=== PATIENT | male | born 1955 | race Caucasian/White ===

== ENCOUNTER 2024-12-15 15:20 | Emergency (ER) | payer OTHER, SELFPAY ==
--- OUTSIDE RECORDS SUMMARY | 2024-12-10 11:00 | XMS_ITS | Encounter Summary ---
Author Organization [facility] Address [address] [place] [address] Phone Care Team Providers Care Legal Mediator Name Role Phone Referring, No Primary Care Provider Unavailabl e Reason for Visit * Reason Comments Vomiting Sometimes after eati ng for past 3 weeks Shortness of Breath X3 weeks Encounter Details Date Type Department Care Team (Late st Contact Info) Description 12/10/2024 12:00 PM EDT Office Visit [facility] [place] [address] [place] [address] Darron Us PA [address] [place] [id number] Shortness of breath (Primary Dx); Nausea and vomiting, unspecified vomiting type Social History Tobacco Use Types Packs/Day Years Used Date Smoking Tobacco: Never Smokeless Tobacco: Never Tobacco Cessation:Counseling Given: Not Answered Alcohol Use Standard Drinks/Week Comments Never 0 (1 standard drink = 0.6 oz pur e alcohol) Sex and Gender Information Value Date Recorded Sex Assigned at Not on file Legal Sex Male 11:16 AM EDT Gender Identity Not on file Sexual Orientation Not on file documented as of this encounter Last Filed Vital Signs Vital Sign Reading Time Taken Comments Blood Pressure 186/104 12/10/2024 12:53 PM EDT Pulse - - Temperature - - Respiratory Rate - - Oxygen Saturation - - Inhaled Oxygen Concentration - - Weight - - Height - - Body Mass Index - - documented in this encounter Patient Instructions * Patient Instructions* Darron Us PA - 12/10/2024 12:00 PM EDT Images from the original note were not included. Thank you for choosing [facility] today! Diagnosis: Shortness for breath, vomiting Chest x-rays concerning for enlarged heart, your blood pressure is mildly elevated. We recommend you go to the emergency department for further evaluation and treatment but you declined and we will follow up with your primary doctor in 2-3 days. Advised that if you develop any worsening chest pain or shortness for breath or vomiting to go immediately to the emergency department. Patient Education Shortness of Breath (Dyspnea) Discharge Instructions About this topic Trouble breathing is known as dyspnea. It is also known as shortness of breath or SOB. You may feellike you do not get enough air when you breathe. Many things can make you feel short of breath. Lung problems, like asthma or chronic obstructive pulmonary disease (COPD) or a blood clot in your lungs, can cause shortness of breath. So can a heart attack or heart failure when your heart doesn???t work as well as it should. A serious allergic reaction can also cause very bad breathing problems. Treatment depends on the specific cause of trouble breathing. What care is needed at home? Ask your doctor what you need to do when you go home. Make sure you ask questions if you do not understand what the doctor says. This way you will know what you need to do. Keep a diary of your signs. Write down when you have trouble breathing and what you were doing before it happened. This can help figure out what things affect your breathing. Then, you may be able toavoid them. Do not smoke or be in smoke-filled places. Avoid things that may cause breathing problems like fumes, pollution, dust, and other common allergens. Do coughing and deep breathing exercises to help keep your lungs clear. If you have medicines to take when you are feeling short of breath, be sure to carry them with you.Then, you can take them when needed. What follow-up care is needed? Your doctor may ask you to make visits to the office to check on your progress. Be sure to keep these visits. Your doctor may order more tests if trouble breathing comes back. The results will help your doctorunderstand what health problem caused your SOB. Together you can make a plan for more care. What drugs may be needed? The doctor may order drugs to: Open the lung passages Relax the airways Help with swelling Control coughing Help you relax Fight an infection Prevent blood clots Take all your drugs as directed by your doctor. Do not stop taking your drugs without talking to your doctor first. Do not share or take other drugs. Get refills before you run out. Will physical activity be limited? Ask your doctor about exercise. Some exercises may not be safe for you. Talk to your doctor about the right amount of activity for you. Stay away from activities that make it hard to breathe. Get enough rest until breathing returns to normal. What problems could happen? Breathing problems get worse Heart failure Lung failure What can be done to prevent this health problem? Avoid tight clothing. Practice good body posture. Rest when you feel out of breath. Take drugs before activity if ordered. When do I need to call the doctor? Activate the emergency medical system right away if you have signs of a heart attack. Call 911 in the [place] or [place]. The sooner treatment begins, the better your chances for recovery. Call for emergency help right away if you have: You have signs of a heart attack, which may include: Breathing trouble; sweating; upset stomach; or cold, clammy skin. Pain in your arms, back, or jaw. Worse pain with activity like walking up stairs. You are having so much trouble breathing that you can only say one or two words at a time. You need to sit upright at all times to be able to breathe or cannot lie down. You develop swelling of your tongue, lips, or throat. You feel your shortness of breath is slowly getting worse. You are feeling weak more than usual when doing activities. Call your regular doctor if: You have a fever of 100.4??F (38??C) or higher, are coughing up mucus, have leg swelling, or hives. You have gain more than 2 to 3 pounds (1 to 1.5 kg) overnight or 3 to 5 pounds (1.5 to 2.5 kg) in aweek. Teach Back: Helping You Understand The Teach Back Method helps you understand the information we are giving you. After you talk with the staff, tell them in your own words what you learned. This helps to make sure the staff has described each thing clearly. It also helps to explain things that may have been confusing. Before going home, make sure you can do these: I can tell you about my condition. I can tell you what may help ease my breathing. I can tell you what I can do to help avoid passing the infection to others. I can tell you what I will do if I have trouble breathing, chest pain, weight gain, or swelling. Where can I learn more? FamilyDoctor.org http://familydoctor.org/familydoctor/en/diseases-conditions/bqxyjsusc-mg-bkvjvv. html NHS Choices https://www.nhs.uk/conditions/xidqofonn-xo-opmllb/ Last Reviewed Date 2021-03-23 Consumer Information Use and Disclaimer This generalized information is a limited summary of diagnosis, treatment, and/or medication information. It is not meant to be comprehensive and should be used as a tool to help the user understand and/or assess potential diagnostic and treatment options. It does NOT include all information about conditions, treatments, medications, side effects, or risks that may apply to a specific patient. Itis not intended to be medical advice or a substitute for the medical advice, diagnosis, or treatment of a health care provider based on the health care provider's examination and assessment of a patient???s specific and unique circumstances. Patients must speak with a health care provider for complete information about their health, medical questions, and treatment options, including any risks orbenefits regarding use of medications. This information does not endorse any treatments or medications as safe, effective, or approved for treating a specific patient. [employer] and its affiliates disclaim any warranty or liability relating to this information or the use thereof. The use of this information is governed by the Terms of Use, available at https://www.[employer].com/en/know/nrxsssmj-jkubtxeoqgenv-arwqw Copyright Copyright ?? 2022 [employer]. and its affiliates and/or licensors. All rights reserved. -Your vital signs were reviewed. -We have discussed your assessment and plan and all questions have been answered. -Discharge information provided. Please review all provided printouts. -Urgent Care is not a substitute for ongoing care with a primary care provider. Please follow up with your primary care provider for continuing symptoms. If you do not have a primary doctor please contact that connection center at -If you experience worsening or severe symptoms go to the nearest emergency department immediately for evaluation. documented in this encounter Progress Notes * Darron Us PA - 12/10/2024 12:00 PM EDT Subjective: Reason for Visit: Vomiting (Sometimes after eating for past 3 weeks) and Shortness of Breath (X3 weeks) History provided by: self Shortness of Breath 69-year-old male with hypertension presents with intermittent vomiting and shortness for breath anddrive throat for 3 weeks. He notes that occasionally he will vomit after eating. He denies any fever, chest pain, palpitations, dizziness, abdominal pain. Notes that he saw his primary care doctor a few days ago with a negative workup. He had blood work done yesterday but was not sure what it was. History: Allergies[1] Past Medical History[2] Past Surgical History[3] Current Outpatient Medications: amLODIPine, Objective: BP (!) 186/104 (Site: l a, Position: Sitting, Cuff Size: Medium) Pulse (!) (P) 97 Temp (P) 98 ??F (36.7 ??C) (Oral) Resp (P) 14 Ht (P) 5' 9 (1.753 m) Wt (P) 70.8 kg SpO2 (P) 96% BMI (P) 23.04 kg/m?? No results found. Physical Exam Vitals reviewed. Constitutional: Appearance: Normal appearance. Comments: Mildly anxious HENT: Head: Normocephalic and atraumatic. Nose: Nose normal. Mouth/Throat: Mouth: Mucous membranes are moist. Eyes: Conjunctiva/sclera: Conjunctivae normal. Cardiovascular: Rate and Rhythm: Normal rate and regular rhythm. Pulmonary: Effort: Pulmonary effort is normal. No respiratory distress. Breath sounds: No wheezing or rhonchi. Abdominal: General: Abdomen is flat. There is no distension. Palpations: There is no mass. Tenderness: There is no abdominal tenderness. There is no right CVA tenderness, left CVA tenderness, guarding or rebound. Musculoskeletal: General: Normal range of motion. Cervical back: Neck supple. Skin: General: Skin is warm and dry. Neurological: General: No focal deficit present. Mental Status: He is alert and oriented to person, place, and time. Cranial Nerves: No cranial nerve deficit. Sensory: No sensory deficit. Motor: No weakness. Gait: Gait normal. Psychiatric: Mood and Affect: Mood normal. No results found for this visit on 12/10/24. XR Chest PA and Lateral Final Result Lungs: No consolidation or infiltrate. Trace right and small left pleural effusion. Mild left basilar atelectasis. Mild pulmonary vascular congestion. No pneumothorax. Cardiomediastinum: Moderate cardiomegaly. Otherwise, mediastinum is normal in size. Bones: No gross acute abnormality. Soft tissues: Unremarkable. /Marked Tree Orders Placed This Encounter Procedures XR Chest PA and Lateral Procedures Assessment & Plan: Encounter Diagnoses Code Name Primary? R06.02 Shortness of breath Yes R11.2 Nausea and vomiting, unspecified vomiting type Requested Prescriptions No prescriptions requested or ordered in this encounter Medical Decision Making: Patient is afebrile nontoxic. Blood pressure is mildly elevated. Patient has normal oxygen saturation on room air. He is afebrile. Patient is mildly anxious appearing. Reviewed preliminary x-ray report with patient advised that it is concerning for heart failure. He declines going to the emergency department at this time and we will follow up with his primary care. Advised that we will contact him with the final read. Patient understands the risk of delaying emergency department care. 13:38 spoke with patient regarding x-ray results. Chest x-ray showed mild cardiomegaly with pleuraleffusions and vascular congestion. No history of heart failure. Advised the patient to go to the emergency department for further evaluation and treatment to rule out heart failure, PE, pneumonia. Patient agrees to go to the emergency department for further evaluation. Differential diagnosis: Congestive heart failure, PE, pleural effusion, pneumonia Dispo: Home Electronically Signed by SHANTA Fuller, December 10, 2024 [1] No Known Allergies [2] Past Medical History: Diagnosis Date Hypertension [3] Past Surgical History: Procedure Laterality Date NO PAST SURGERIES documented in this encounter Plan of Treatment Not on file documented as of this encounter Procedures Procedure Name Priority Date/Time Associated Diagnosis Comments XR CHEST PA AND LATERAL Within 2 hours (STAT) 12/10/2024 12:21 PM EDT Shortness of breath documented in this encounter Results * XR Chest PA and Lateral (12/10/2024 12:21 PM EDT) Anatomical Region Laterality Modality Chest Digital Radiogra phy 12/10/2024 12:5 8 PM EDT Impressions 12/10/2024 12:58 PM EDT Lungs: No consolidation or infiltrate. Trace right and small left pleural effusion. Mild left basilar atelectasis. Mild pulmonary vascular congestion. No pneumothorax. Cardiomediastinum: Moderate cardiomegaly. Otherwise, mediastinum is normal in size. Bones: No gross acute abnormality. Soft tissues: Unremarkable. /[place] Narrative 12/10/2024 12:58 PM EDT Examination X-ray(s) of the Chest Comparison None provided. Findings: As below Procedure Note Galdino Shaw, DO - 12/10/2024 Examination X-ray(s) of the Chest Comparison None provided. Findings: As below IMPRESSION: Lungs: No consolidation or infiltrate. Trace right and small left pleuraleffusion. Mild left basilar atelectasis. Mild pulmonary vascularcongestion. No pneumothorax. Cardiomediastinum: Moderate cardiomegaly. Otherwise, mediastinum is normalin size. Bones: No gross acute abnormality. Soft tissues: Unremarkable. /[place]astern Darron WOMACK IMG DIAGNOSTIC IMAGING ORDERABL ES Final Result documented in this encounter Visit Diagnoses Diagnosis Shortness of breath- Primary Nausea and vomiting, unspecified vomiting type documented in this encounter Care Teams Legal Mediator Relationship Specialty Start Date End Date Referring, No PCP - General 12/10/24 documented as of this encounter
--- NOTE | ~2024-12-15 | XR_ITS ---
CLINICAL HISTORY: shortness of breath 2 view chest x-ray Comparison: None provided Findings: Small left pleural effusion. Mildly prominent perihilar vasculature. Mild cardiomegaly. No acute osseous abnormality. IMPRESSION: 1. Mild cardiomegaly with pulmonary vascular congestion and small left pleural effusion. This document has been electronically signed by: Mindy Chen MD on 12/15/2024 18:21:30
--- NOTE | 2024-12-15 15:24 | ECG_ITS ---
Test Reason : AFIB Blood Pressure : */* mmHG Vent. Rate : 81 BPM Atrial Rate : * BPM P-R Int : * ms QRS Dur : 104 ms QT Int : 410 ms P-R-T Axes : * 76 252 degrees QTcB Int : 476 ms Atrial fibrillation with premature ventricular or aberrantly conducted complexes Moderate voltage criteria for LVH, may be normal variant ( Sokolow-Zamora , [place]ackney product ) ST & T wave abnormality, consider inferolateral ischemia Prolonged QT Abnormal ECG No previous ECGs available Referred By: Gerald Kauffman Electronically Signed By: Ricky Cunningham
[2024-12-15 15:36] VITALS: BP 151/88; PULSE 94; RESP 18; TEMP 36.6; O2SAT 95; BMI 23.9
--- NOTE | 2024-12-15 15:44 | ED_ITS ---
HPI - General Adult General Chief complaint: Arrhythmia/Palpitations Stated complaint: sent by Dr Merino cardiac? Time Seen by Provider: 12/15/24 16:23 Source: patient, RN notes reviewed and old records reviewed Mode of arrival: ambulatory Limitations: no limitations History of Present Illness ED Provider: Frantz CRUZ narrative: 69-year-old male with past medical history significant for hypertension presents for evaluation of shortness of breath and dyspnea on exertion. The patient reports that his symptoms were 2 weeks ago. He saw his primary doctor 2 weeks ago for a sick visit and was found to be in AFib. This was new for the patient and he was started on metoprolol. Unfortunately that medication was sent to a [facility]imalleolar pharmacy and the patient was only able to start the medication 3 days ago. He is not anticoagulated. He reports that he had a follow up with his primary doctor today which was a routine visit. The patient was referred to the ED for further evaluation. In his somewhat unclear why he was sent here today the patient reports he is currently asymptomatic, denies any chest pain, shortness of breath. He does admit that with significant exertion, walking up 3 flights of stairs he does have some mild shortness of breath. Denies any leg swelling He has no other complaints or concerns at this time Related Data Previous Rx's ?Medication ?Instructions ?Recorded apixaban 5 mg (74 tabs) tablets in 5 mg PO BID #74 ea 12/15/24 a dose pack (Eliquis DVT-PE Treat 30D Start) furosemide 20 mg tablet (Lasix) 20 mg PO DAILY #5 tabs 12/15/24 Allergies Allergy/AdvReac Type Severity Reaction Status Date / Time No Known Allergies Allergy Verified 12/15/24 15:40 Review of Systems 2 Constitutional: Constitutional: Denies body ache(s), Denies chills, Denies fever(s) and Denies headache(s) Eyes: Eyes: Denies blurry vision ENT: Denies dizziness, Denies dry mouth and Denies headache(s) Cardiovascular: Cardiovascular: Denies chest pain, Denies dyspnea and Reports dyspnea on exertion Respiratory: Respiratory: Denies cough, Denies dyspnea and Reports dyspnea on exertion Gastrointestinal: Gastrointestinal: Denies abdominal pain, Denies nausea and Denies vomiting Musculoskeletal: Musculoskeletal: Denies back pain Integumentary/Breasts: Skin/Breast: Denies rash Neurologic: Denies dizziness and Denies headache(s) Psychiatric: Psychiatric: Denies anxiety Physical Exam ED Vital Signs: Vital Signs - 24 hr 12/15/24 15:36 12/15/24 16:29 12/15/24 19:34 Temperature 98 F 98.2 F Pulse Rate 94 99 85 Respiratory Rate 18 17 18 Blood Pressure 151/88 H 00/00 L Pulse Oximetry 95 98 96 Oxygen Delivery Method Room Air Room Air Room Air BMI result Body Mass Index 23.9 Const General: healthy appearing, comfortable, no acute distress, alert and awake Nutritional Appearance: well nourished Orientation/consciousness: patient oriented x3 HENMT Head: Yes normocephalic and Yes atraumatic Eyes Eyelids: Yes eyelids normal Conjunctivae: conjunctivae normal Sclerae: sclerae normal Corneas: corneas normal Pupils: Equal, round and reactive pupils present EOM: EOMs intact bilaterally Neck Neck: Yes full ROM Resp Effort & Inspection: normal respiratory effort, able to speak in complete sentences, no audible wheezes and not labored Auscultation: clear to auscultation bilaterally Cardio Rate: abnormal rate Rhythm: abnormal rhythm irregularly irregular GI Inspection: No distended Palpation (GI): Soft to palpation, not firm, nontender, no guarding and not rigid Skin General skin exam: no rashes or lesions noted and elasticity normal Neuro General: patient oriented x3 Cranial nerves: Yes CN's II-XII intact bilaterally, Yes Equal, round and reactive pupils present and Yes Bilaterally intact EOM present Cognition (Neuro): normal cognition Extrem Other: Moving all extremities well without any obvious deformities Course Course Course Narrative: RME: 69-year-old male since from primary care provider for AFib. Patient states shortness of breath on exertion for 2 weeks. Labs EKG ordered. EKG shows AFib rate controlled 81. Medications Administered Discontinued Medications Generic Name Dose Route Start Last Admin Trade Name Freq PRN Reason Stop Dose Admin Apixaban 5 mg 12/15/24 18:55 12/15/24 19:18 Apixaban 5 Mg Tablet PO 12/15/24 18:56 5 mg ONCE ONE Administration Medical Decision Making Medical Decision Making MDM Narrative: 69-year-old male with a past medical history as above presents for evaluation of atrial fibrillation. The patient is asymptomatic currently. I am not entirely sure why he was sent to the ED as she was diagnosed with a AFib 2 weeks ago. He was prescribed metoprolol in his currently rate controlled at 80 beats per minute. His EKG does show atrial fibrillation with some PVCs. We have no previous for comparison. The patient is mildly hypertensive at 158/88. Otherwise his vital signs are within normal limits. He did have labs performed that show no leukocytosis, no significant anemia. No left shift. He has a mild hypokalemia of 3.2, a carbon dioxide level of 31 which may be due to undiagnosed obstructive sleep apnea. He has a slightly elevated total bilirubin to 1.6 but denies any abdominal pain, nausea vomiting. The patient's troponin is 19.3. Again his symptoms have been present for 2 weeks he currently has no chest pain, he rules out for ACS. His pro BNP is elevated to 3198. I did order a chest x- ray due to this which shows small pleural effusion on the left. The pain has a staying in the hospital. Given that his vital signs are stable and he is rate controlled I feel is appropriate that he can follow up with outpatient Cardiology. I did give him strict return precautions including worsening chest pain, worsening shortness of breath or palpitations. We will start him on Eliquis. I discussed risks and benefits of bleeding, head injuries. Differential Diagnosis Differential Diagnoses: The differential diagnosis associated with the presentation includes Atrial fibrillation Congestive heart failure Dyspnea on exertion Cardiomyopathy Arrhythmia Bronchitis less likely Admission/Observation Consideration of admission/observation: Escalation of care including admission/observation considered Consider admission for stress and a cardiogram due to history of atrial fibrillation with the patient adamantly declines admission. Lab Data MDM Lab Attestation statement: I reviewed the patient's lab results. As above, mild hypokalemia. 12/15/24 16:44 12/15/24 16:44 Labs: Lab Results 12/15/24 Range/Units 16:44 WBC 9.3 (4.8-10.8) X10*3/uL RBC 5.16 (4.60-5.80) X10*6/uL Hgb 15.4 (14.0-18.0) g/dl Hct 46.4 (42.0-52.0) % MCV 89.9 (80.0-98.0) fL MCH 29.8 (27.0-33.0) pg MCHC 33.2 (31.0-36.0) g/dl RDW 15.3 (11.0-16.0) % Plt Count 226 (160-400) X10*3/uL MPV 10.4 (9.4-12.4) fL Immature Gran % (Auto) 0.2 (0.0-0.4) % Neut % (Auto) 72.5 (45-73) % Lymph % (Auto) 16.2 L (20-40) % Coles % (Auto) 9.6 (2-11) % Eos % (Auto) 1.1 (0-4) % Baso % (Auto) 0.4 (0-2) % Lymph # (Auto) 1.5 (1.2-4.9) X10*3/uL Coles # (Auto) 0.9 (0.1-1.2) X10*3/uL Eos # (Auto) 0.1 (0.0-0.4) X10*3/uL Baso # (Auto) 0.0 (0.0-0.2) X10*3/uL Abs Immat Gran (auto) 0.02 (0.00-0.03) X10*3/uL Absolute Neuts (auto) 6.7 (2.0-8.3) x10*3/uL Absolute Nucleated RBC 0.000 (0.0-0.012) X10*3/uL Nucleated RBC % (auto) 0.0 (0.0-0.2) /100WBC PT 12.9 (11.2-13.5) SEC INR 1.1 (0.9-1.1) APTT 28.7 (26.7-34.1) SEC Sodium 143 (135-145) mmol/L Potassium 3.2 L (3.3-5.1) mmol/L Chloride 105 (96-108) mmol/L Carbon Dioxide 31 H (22-29) mmol/L Anion Gap 10 L (12-20) BUN 19 H (9-16) mg/dL Creatinine 0.80 (0.5-1.4) mg/dL Estim Creat Clear Calc 87.1 Estimated GFR > 60 Random Glucose 108 (60-115) mg/dL Calcium 9.2 (8.4-10.2) mg/dL Total Bilirubin 1.6 H (0.0-1.0) mg/dL AST 40 H (5-37) U/L ALT 71 H (0-40) U/L Alkaline Phosphatase 87 (39-117) U/L Troponin I High Sens 19.3 (<3.5-35.0) ng/L NT-Pro-B Natriuret Pep 3898.0 H (<300) pg/mL Total Protein 6.7 (6.5-8.0) g/dL Albumin 4.2 (3.5-5.0) g/dL TSH 1.41 (0.32-4.0) uIU/mL Discharge Plan Discharge Clinical Impression: Atrial fibrillation, Congestive heart failure Patient Disposition: Home, Self-Care Instructions: Heart Failure (ED), A-fib (Atrial Fibrillation) (ED), Blood Thinners (ED) Additional Instructions: Your blood work today was reassuring. It does appear that you have mild congestive heart failure. Your chest x-ray shows a small amount of fluid in the lungs. I recommend taking Eliquis as prescribed to reduce risk of stroke pain You should take Lasix daily for the next 5 days to help with congestive heart failure Follow up with Cardiology and provided. Return for new or worsening symptoms, especially chest pain, shortness of breath or palpitations Prescriptions: New Eliquis DVT-PE Treat 30D Start 5 mg (74 tabs) tablets,dose pack 5 mg PO BID Qty: 74 0RF furosemide [Lasix] 20 mg tablet 20 mg PO DAILY Qty: 5 0RF Referrals: [facility] [place] [facility] [Provider Group] Referral Note: ashley armendariz fib, CHF Interventions: ED Discharge Assessment Last Done: 12/15/24 19:34 Discharge Date/Time: 12/15/24 19:57 Print Language: Maltese
[2024-12-15 16:29] VITALS: PULSE 99; RESP 17; O2SAT 98
[2024-12-15 16:48] LABS: MANUAL DIFF FLAG NO
[2024-12-15 16:49] LABS: Hematocrit 46.4 % (42.0-52.0); Hemoglobin 15.4 g/dl (14.0-18.0); Imm Gran Abs Auto 0.02 X10*3/uL (0.00-0.03); Imm Gran Pct Auto 0.2 % (0.0-0.4); Lymphocytes Absolute Auto 1.5 X10*3/uL (1.2-4.9); Mean Corpuscular HGB Conc 33.2 g/dl (31.0-36.0); Mean Corpuscular Hemoglobin 29.8 pg (27.0-33.0); Mean Corpuscular Volume 89.9 fL (80.0-98.0); NRBC Abs Auto 0.000 X10*3/uL (0.0-0.012); NRBC Pct Auto 0.0 /100WBC (0.0-0.2); Platelet Count 226 X10*3/uL (160-400); Red Blood Count 5.16 X10*6/uL (4.60-5.80); White Blood Count 9.3 X10*3/uL (4.8-10.8)
[2024-12-15 17:02] LABS: INTERNATIONAL NORM RATIO 1.1 (0.9-1.1); Prothrombin Time 12.9 SEC (11.2-13.5)
[2024-12-15 17:05] LABS: Partial Thromboplastin Time 28.7 SEC (26.7-34.1)
[2024-12-15 17:14] LABS: Alanine Aminotransferase 71 U/L (0-40); Albumin Level 4.2 g/dL (3.5-5.0); Alkaline Phosphatase 87 U/L (39-117); Anion Gap 10 (12-20); Aspartate Amino Transferase 40 U/L (5-37); Blood Urea Nitrogen 19 mg/dL (9-16); Calcium 9.2 mg/dL (8.4-10.2); Carbon Dioxide 31 mmol/L (22-29); Chloride 105 mmol/L (96-108); Creatinine Clr Calc Pharmacy 87.1; Estimated Glomerular Filt Rate > 60; NT Pro B Type Natriuretic Pept 3898.0 pg/mL (<300); Potassium 3.2 mmol/L (3.3-5.1); Sodium 143 mmol/L (135-145); Total Protein 6.7 g/dL (6.5-8.0); Troponin-I High Sensitivity 19.3 ng/L (<3.5-35.0)
--- OUTSIDE RECORDS SUMMARY | 2024-12-15 19:07 | XMS_ITS | Clinical Summary ---
Author Organization [address] [facility] Address [address] [place] [address] Care Team Providers Care Refrigeration Lead Name Role Phone Referring, No Primary Care Provider Unavailabl e Allergies No known active allergies Medications amLODIPine (NORVASC) 10 mg tablet 11/02/2024 Active Active Problems No known active problems Encounters Date Type Department Care Team Description 12/10/2024 12:00 PM EDT Office Visit [facility] [address] Darron Us, SHANTA Shortness of breath (Primary Dx); Nausea and vomiting, unspecified vomiting type from Last 3 Months Family History Medical History Relation Name Comments No Known Problems Father No Known Problems Mother Relation Name Status Comments Father Mother Social History Tobacco Use Types Packs/Day Years [...] on file Sexual Orientation Not on file Last Filed Vital Signs Vital Sign Reading Time Taken Comments Blood Pressure 186/104 12/10/2024 12:53 PM EDT Pulse - - Temperature - - Respiratory Rate - - Oxygen Saturation - - Inhaled Oxygen Concentration - - Weight - - Height - - Body Mass Index - - Plan of Treatment Health Maintenance Due Date Last Done Comments HIV screening 08/16/1968 Hepatitis C screening 08/16/1973 Tetanus adult (Td q 10,TDAP once) 1975 Lipid disorder screening 1995 Colon cancer screening, Colonoscopy 08/16/2000 Diabetes screening 08/16/2000 Pneumococcal Vaccine (50+ ye ars) (1 of 1 - PCV) 08/16/2005 Shingles vaccine (Shingrix) (1 of 2 - Shingrix (RZV) 2 Dose Standard Series) 08/16/2005 Influenza vaccine 09/10/2024 Covid-19 vaccine series (1 - season) 2024 RSV Immunization (1 - 1-dose 75+ series) 08/16/2030 Meningococcal B Vaccine Aged Out No l onger eligible based on patient's age to complete this topic Meningococcal Vaccine Aged Out No aracely criselda eligible based on patient's age to complete this topic Procedures Procedure Name Priority Date/Time Associated Diagnosis Comments XR CHEST PA AND LATERAL Within 2 hours (STAT) 12/10/2024 12:21 PM EDT Shortness of breath from Last 3 Months Results * XR Chest PA and Lateral [...] No gross acute abnormality. Soft tissues: Unremarkable. [place] Darron [facility]G DIAGNOSTIC IMAGING ORDERABL ES Final Result from Last 3 Months Insurance MEDICARE Incont MEDICARE Incont MEDICARE [facility] Care Teams Refrigeration Lead Relationship Specialty Start Date End Date Referring, No PCP - General 12/10/24
--- OUTSIDE RECORDS SUMMARY | 2024-12-15 19:07 | XMS_ITS ---
Author Name [facility] Organization Unknown History of Medication Use Medication Directions Dispensed Refills Start Date End Date Stat amLODIPine (NORVASC) 10 mg tablet 11/02/2024 active Problems Problem Status Onset Date Problem Type Date of Resolution Source Shortness of breath active EncounterDiagnosisAct CT_YAL EUC Nausea and vomiting, unspecified vomiting type active EncounterDiagnosisAct CT_YA LEUC Encounters Encounter Type Encounter Reason Primary Diagnosis Location Date Ambulatory Shortness of breath Shortness of breath [facility] 12/10/2024 Care Team Organization Name Specialty Phone Email Start Date End Da nadia [facility] 12/10/2024 [facility] 12/10/2024
[2024-12-15 19:34] VITALS: BP 00/00; PULSE 85; RESP 18; TEMP 36.8; O2SAT 96
--- NOTE | 2024-12-15 19:38 | PC.NURSE ---
pt refused blood pressure upon d/c.
== END 2024-12-15 19:57 | disposition home or self-care (01) ==
PROVIDERS: Physician Assistant; Emergency Provider Emergency Medicine; PCP Internal Medicine
DX: I48.91 Unspecified atrial fibrillation (principal); I11.0 Hypertensive heart disease with heart failure; I50.9 Heart failure, unspecified; R00.2 Palpitations; R06.02 Shortness of breath; R06.00 Dyspnea, unspecified; J90 Pleural effusion, not elsewhere classified; Z79.01 Long term (current) use of anticoagulants
CPT/HCPCS: 36415; 71046; 80053; 83880; 84443; 84484; 85025; 85610; 85730; 93005; 99283; 99285

== ENCOUNTER → 2024-12-15 15:24 | Outpatient (BNV) | payer OTHER, SELFPAY | PROVIDERS: Emergency Provider Emergency Medicine; PCP Internal Medicine; Visit Provider Internal Medicine Cardiovascular Disease | DX: I48.91 Unspecified atrial fibrillation (principal) | CPT/HCPCS: 93010 ==

== ENCOUNTER → 2024-12-15 17:17 | Outpatient (BNV) | payer OTHER, MEDICARE, SELFPAY | PROVIDERS: PCP Internal Medicine; Visit Provider Student in an Organized Health Care Education/Training Program | DX: R06.02 Shortness of breath (principal) | CPT/HCPCS: 71046 ==

== ENCOUNTER 2025-01-28 12:57 | Outpatient (AMB) | payer OTHER, SELFPAY ==
--- NOTE | 2025-01-28 13:07 | MHC.OFFVIS ---
Vital Signs 01/28/25 13:08 Height 5 ft 9 in Weight 152 lb 1.903 oz BMI 22.5 BP 122/68 Blood Pressure Location Lt brachial Position Sitting Pulse 78 Pulse Source Pulse Oximeter Intake Visit Reasons: [employer]/[facility] [place] ER/Afib ([facility]) Allergies No Known Allergies Allergy (Verified 12/15/24 15:40) Medication List - Last Reconciled 01/28/25 by DARRIUS Kaplan metoprolol succinate ER 25 mg PO DAILY HPI HPI [employer]/[facility] [place] ER/Afib (): Details: The patient is a 69-year-old male presenting for a cardiology consultation for new-onset atrial fibrillation. On 12/15/2024, he visited his primary care physician for flu-like symptoms, including congestion and blocked ears, and was incidentally found to be in atrial fibrillation, prompting referral to the emergency room. In the emergency room, an EKG confirmed atrial fibrillation with PVCs and a heart rate of 80 bpm. His troponin level was normal, but his BNP was elevated at 3198, and a chest x-ray revealed small pleural effusions on the left. He was started on metoprolol, Eliquis for anticoagulation, and a five-day course of low-dose Lasix. The patient reports feeling completely normal starting about a week after his ER visit and currently denies any symptoms, including chest pain or palpitations. He has since completed the course Lasix and stopped the E iquis when he ran out. He continues to take metoprolol. He had no bleeding issues while on Eliquis. 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 He denies any prior history of heart problems or a family history of heart disease. He has never smoked and has not consumed alcohol in approximately 30 years. He works time cycle operator refinishing wood floors and reports good activity tolerance. [facility] Social History Alcohol intake: former Patient Tobacco Use Status: Never used Tobacco Review of Systems Const All systems reviewed & are unremarkable except as noted in HPI and below Denies weakness ENT Denies dizziness Card Denies chest pain, Denies chest pain with activity, Denies syncope, Denies rapid heart rate, Denies pedal edema, Denies edema, Denies leg edema, Denies lightheadedness, Denies palpitations, Denies dyspnea, Denies dyspnea on exertion and Denies orthopnea Resp Denies cough, Denies dyspnea and Denies dyspnea on exertion GI Denies hematochezia and Denies change in stool character Musc Denies abnormal gait, Denies muscle cramps, Denies muscle weakness, Denies numbness, Denies radiating pain into limb and Denies tingling Neuro Denies abnormal gait, Denies dizziness, Denies syncope, Denies numbness, Denies tingling and Denies weakness Endo Denies palpitations Physical Exam Vital Signs: Last Vital Signs Pulse 78 01/28/25 13:08 BP 122/68 01/28/25 13:08 BMI result Body Mass Index 22.5 Const General: cooperative, healthy appearing, comfortable and no acute distress Orientation/consciousness: patient oriented x3 Neck Neck: Yes normal visual inspection Resp Effort & Inspection: normal respiratory effort Auscultation: clear to auscultation bilaterally, no crackles, no rales, no rhonchi and no wheezes Cardio Rate: regular rate Rhythm: abnormal rhythm Heart sounds: S1 normal heart sound present, S2 normal heart sound present, no gallops, no murmurs and no rubs Neuro General: patient oriented x3 Extrem General: Yes normal to inspection and No no pedal edema Psych Appearance: grossly normal Mental Status: mental status grossly normal Speech and movement: Normal speech and movement present Office Procedures EKG Details: Today, read by me, atrial fibrillation with PVC, right axis deviation, septal infarct, inferior lateral ST-T/T-wave abnormalities, rate 70, QTC 464 milliseconds [id number], Complete Assessment & Plan Assessment & Plan (1) Atrial fibrillation: Code(s): I48.91 - Unspecified atrial fibrillation Category: Medical Plan: New diagnosis of atrial fibrillation which may be persistent. He is on metoprolol for rate control. EKG today showing AFib with 1 PVC, rate 70. Currently asymptomatic. He stopped taking Eliquis when his bottle ran out and he refuses restart of anticoagulation. Reviewed diagnosis of AFib, cardiac testing, medication management and stroke risk and he states understanding. Recommended echocardiogram, Holter monitor and stress test and he declines. He only agrees to continue metoprolol. (2) Congestive heart failure: Code(s): I50.9 - Heart failure, unspecified Category: Medical Plan: During ER visit 12/15/2024 for new onset of AFib he had elevated BNP and chest x-ray showing small left pleural effusion. He was given a 5 day course of furosemide which he completed. He does not appear fluid overloaded on exam today. Recommended echocardiogram and he declines. (3) Hospital discharge follow-up: Code(s): Z51.89 - Encounter for other specified aftercare Category: Medical Plan: Hospital notes reviewed Plan I informed the patient that his EKG today confirms he is still in atrial fibrillation, even though he feels well and his heart rate is controlled. I explained that in this rhythm, the top chambers of the heart shake instead of pumping efficiently, which increases the risk of forming blood clots that can travel to the brain and cause a stroke. I strongly recommended he restart a blood thinner, like Eliquis, to reduce his stroke risk. 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 I counseled him that the risk of a minor bleed is not comparable to the life-altering risk of a stroke, and he verbalized understanding of this risk. I also recommended an echocardiogram and a heart monitor to further evaluate his heart, but he declined these tests at this time. I suggested a stress test and he states he does not need one. We discussed the symptoms of a stroke, and I instructed him to call 911 immediately if any occur. Given his decision to defer treatment and testing, I arranged a follow-up appointment with the drug enforcement agent in six weeks to allow him to process this information and revisit the plan. Patient Instructions: - Your heart is currently in an irregular rhythm called atrial fibrillation (AFib). - This condition significantly increases your risk of having a stroke, which can be disabling. - It is strongly recommended that you take a blood thinner medication to lower your stroke risk. You have decided not to take this at this time, but we urge you to reconsider this as it is very important for your long-term health. - Continue taking your heart rate medication, metoprolol, as you have been. - Be aware of the signs of a stroke: sudden weakness or numbness (especially on one side), confusion, trouble speaking or seeing, or a sudden severe headache. If you experience any of these, call 911 immediately. - You have a follow-up appointment with the heart doctor in about six weeks to discuss your condition and treatment options again. Patient was informed and verbally consented to the use of an ambient scribe for clinic note documentation during this visit. Visit time spent on chart review, interview, assessment, orders, documentation. Coding Level of Care Code New Pt Level 4 (50313) Add On Problem Visit Only Diagnoses Atrial fibrillation I48.91 Congestive heart failure I50.9 Hospital discharge follow-up Z51.89 CPT Codes EKG - CPT: 75165-[id number], Complete ([id number]) Time Spent (min) 32
[2025-01-28 13:08] VITALS: BP 122/68; PULSE 78; BMI 22.5
--- OUTSIDE RECORDS SUMMARY | 2025-01-28 14:45 | XMS_ITS | Clinical Summary ---
Author Organization [address] [facility] Address [address] [place] [address] Care Team Providers Care Fur Blower Operator Name Role Phone Referring, No Primary Care Provider Unavailabl e Allergies No known active allergies Medications amLODIPine (NORVASC) 10 mg tablet 11/02/2024 Active Active Problems No known active problems Encounters Date Type Department Care Team Description 12/10/2024 12:00 PM EDT Office Visit [facility] [address] Darron Us, SHANTA Shortness of breath (Primary [...] Result from Last 3 Months Insurance MEDICARE Member Subscriber Plan / Payer (Ef fective 2020-Present) Name:Graham Cano Member ID:[id number] Relation to Subscriber:Self Name:Graham Cano Subscriber ID:[id number] Payer ID:[id number] Group ID:Not on file Type:Not on file Address: [address] [address] [place] MEDICARE [place] MEDICARE [facility] Care Teams Fur Blower Operator Relationship Specialty Start Date End Date Referring, No PCP - General 12/10/24
== END 2025-01-28 13:45 | disposition home or self-care (01) ==
LOC: HO.HCS 12:57
PROVIDERS: PCP Internal Medicine; Visit Provider Nurse Practitioner Family
DX: I48.91 Unspecified atrial fibrillation (principal); I50.9 Heart failure, unspecified; Z51.89 Encounter for other specified aftercare
CPT/HCPCS: 93010; 99204

== ENCOUNTER → 2025-01-28 12:57 | Outpatient (BNVA) | payer OTHER, SELFPAY | PROVIDERS: PCP Internal Medicine; Visit Provider Nurse Practitioner Family | DX: I48.91 Unspecified atrial fibrillation (principal) | CPT/HCPCS: 93005 ==